=== PATIENT | male | born 1960 | race Caucasian/White ===

== ENCOUNTER 2019-03-15 07:01 | Outpatient (CLI) | payer BC ==
--- NOTE | 2019-03-15 07:55 | ULT ---
RIGHT UPPER QUADRANT ULTRASOUND: INDICATION: Abnormal liver function tests. FINDINGS: Gallbladder has a normal sonographic appearance. No evidence of gallstones. The common bile duct is of normal caliber. Pancreas is obscured. The liver appears within normal limits. There is evidence of mild hydronephro sis or fullness of the right renal collecting structures. IMPRESSION: Evidence of mild right hydronephrosis. Gallbladder ultrasound otherwise unremarkable. POS: OFF
--- NOTE | 2019-03-15 08:00 | ULT ---
LIMITED ABDOMINAL ULTRASOUND: INDICATION: Inguinal hernia. FINDINGS/IMPRESSION: Ultrasound of the right groin was performed. No evidence of inguinal hernia identified by ultrasound . POS: OFF
== END 2019-03-15 07:02 | disposition home or self-care (01) ==
LOC: ULT 07:01
PROVIDERS: ATTEND Physician Assistant
DX: K40.90 Unilateral inguinal hernia, without obstruction or gangrene, not specified as recurrent (principal); R74.0 Nonspecific elevation of levels of transaminase and lactic acid dehydrogenase [LDH]; N13.30 Unspecified hydronephrosis
CPT/HCPCS: 36415; 76705; 80061; 81001; 85025; G0103

== ENCOUNTER 2020-04-11 14:40 | Outpatient (CLI) | payer BC ==
--- NOTE | 2020-04-11 15:22 | ULT ---
US Renal Bilateral STANDARD History: Urinary frequency Comparison: None. Findings: Real-time grayscale and color evaluation of the kidneys and urinary bladder was performed. Right kidney measures 10.5 x 5.8 x 5.2 cm mild right hydronephrosis. No mass or abnormal calcificatio ns. Left kidney measures 10.8 x 5.8 x 5.5 cm without mass, hydronephrosis or abnormal calcifications. Urinary bladder is unremarkable. Prostate is enlarged. Impression: 1. Mild-early moderate right hydronephrosis. CT may be beneficial to evaluate for distal obstructing process. 2. Prostatomegaly. 3. Post void urinary bladder residual of 29 mL.
== END 2020-04-11 14:41 | disposition home or self-care (01) ==
LOC: BICULT 14:40
PROVIDERS: ATTEND Urology
DX: N13.39 Other hydronephrosis (principal); R35.0 Frequency of micturition; N40.0 Benign prostatic hyperplasia without lower urinary tract symptoms; Z87.19 Personal history of other diseases of the digestive system
CPT/HCPCS: 76770

== ENCOUNTER 2022-03-12 12:30 | Outpatient (CLI) | payer BC ==
[~2022-03-12 12:30] MED LIST: Iopamidol 370 76% 100 ML VIAL ONE
== END 2022-03-12 12:31 | disposition home or self-care (01) ==
LOC: CT 12:30
PROVIDERS: ATTEND Nurse Practitioner Family
DX: R10.31 Right lower quadrant pain (principal); R10.32 Left lower quadrant pain; K57.30 Diverticulosis of large intestine without perforation or abscess without bleeding; R53.83 Other fatigue; Z87.19 Personal history of other diseases of the digestive system
CPT/HCPCS: 74178; Q9967

== ENCOUNTER 2022-03-23 09:02 | Outpatient (CLI) | payer BC | END 2022-03-23 09:03 | disposition home or self-care (01) | LOC: BICRAD 09:02 | PROVIDERS: ATTEND Nurse Practitioner Family | DX: M25.512 Pain in left shoulder (principal); M19.012 Primary osteoarthritis, left shoulder ==

== ENCOUNTER 2024-10-26 09:47 | Outpatient (CLI) | payer MEDICARE ==
[2024-10-26 11:43] LABS: #Basophils 0.08 10x3/uL (0.0-0.2); %Basophils 1.2 % (0.0-1.0); %Lymphocytes 27.9 % (21.0-51.0); %Monocytes 7.7 % (0.0-10.0); %Neutrophils 57.8 % (42.0-75.0); Hematocrit 47.2 % (42.0-52.0); Hemoglobin 15.4 g/dL (14.0-18.0); Mean Corpuscular HGB CONC 32.6 g/dL (32.0-36.0); Mean Corpuscular Hemoglobin 27.7 pg (27.0-31.0); Platelet Count 154 10x3/uL (130-400); RBC Distribution Width 14.2 % (11.5-14.5); Red Blood Cell (RBC) Count 5.55 mill/uL (4.70-6.10)
[2024-10-26 12:02] LABS: Anion Gap 14 mmol/L (10-20); BUN (Urea Nitrogen) 16 mg/dL (8.4-25.7); Calc. Creatinine Clearance 0 mL/min (70-130); Calcium 9.5 mg/dL (7.8-10.44); Carbon Dioxide 25 mmol/L (23-31); Chloride 108 mmol/L (98-107); Estimated GFR 77; Glucose 69 mg/dL (80-115); Potassium 4.9 mmol/L (3.5-5.1); Sodium 142 mmol/L (136-145)
== END 2024-10-26 09:48 | disposition home or self-care (01) ==
LOC: LABBT 09:47
PROVIDERS: ATTEND Surgery
DX: Z01.818 Encounter for other preprocedural examination (principal); K57.32 Diverticulitis of large intestine without perforation or abscess without bleeding
CPT/HCPCS: 80048; 85025; 93005; 93010

== ENCOUNTER 2024-10-26 10:00 | Inpatient (IN) | payer MEDICARE ==
[2024-10-26 10:10] VITALS: BMI 26.9
[2024-11-03] MEDS ORDERED: Bupivacaine 0.25% HCL 30 ML VIAL ONE (10:31)
[2024-11-03] MEDS ORDERED: EPINEPHrine 1 MG/ML VIAL ONE (10:31)
[2024-11-03] MEDS ORDERED: Indocyanine Green 25 MG/10 ML VIAL ONE (10:31)
[2024-11-03] MEDS ORDERED: Acetaminophen 325 MG TAB ONE (10:42)
[2024-11-03] MEDS ORDERED: Heparin 5,000 UNITS/ML VIAL ONE (10:42)
[2024-11-03] MEDS ORDERED: metroNIDAZOLE 500 MG (100 mL) BAG ONE (10:43)
[2024-11-03] MEDS ORDERED: Ketorolac Tromethamine 30 MG (1 mL) VIAL ONE (10:43)
[2024-11-03] MEDS ORDERED: CEFAZOLIN 2 GM VIAL ONE (11:59)
[2024-11-03] MEDS ORDERED: fentaNYL PF 100 MCG/2 ML SYRINGE ONE (12:02)
[2024-11-03] MEDS ORDERED: Rocuronium Bromide 10 MG/ML (10ML VIAL) ONE (12:02)
[2024-11-03] MEDS ORDERED: Ondansetron PF 4 MG/2 ML Vial ONE (12:02)
[2024-11-03] MEDS ORDERED: Midazolam HCl 2 mg/2 ml Vial ONE (12:02)
[2024-11-03] MEDS ORDERED: Lidocaine 2% PF 5 ML VIAL ONE (12:02)
[2024-11-03] MEDS ORDERED: PROPOFOL 200 MG/20 ML VIAL ONE (12:20)
[2024-11-03] MEDS ORDERED: Dexamethasone 20 MG/5 ML VIAL ONE (12:20)
[2024-11-03] MEDS ORDERED: HYDROmorphone 2 MG/ML VIAL ONE (12:26)
[2024-11-03] MEDS ORDERED: SUGAMMADEX SODIUM 200 MG/2 ML VIAL ONE (13:19)
[2024-11-03] MEDS ORDERED: hydrALAZINE 20 MG/ML VIAL SLOW IVP PRN (13:45)
[2024-11-03] MEDS ORDERED: Promethazine HCl 25 MG/ML VIAL IM PRN (13:45)
[2024-11-03] MEDS ORDERED: Ipratropium/Albuterol 3 ML NEB NEB PRN (13:45)
[2024-11-03] MEDS: Acetaminophen 325 MG TAB PO SCH (15:20)
[2024-11-03] MEDS: Ketorolac Tromethamine 30 MG (1 mL) VIAL IVP SCH (17:14)
[2024-11-03] MEDS: Ondansetron PF 4 MG/2 ML Vial IVP PRN (21:22)
[2024-11-04] MEDS: traMADol HCl 50 MG TAB PO PRN (03:09)
[2024-11-04 05:23] LABS: #Basophils Less than 0.03 10x3/uL (0.0-0.2); #Eosinophils Less than 0.03 10x3/uL (0.0-0.7); %Basophils 0.1 % (0.0-1.0); %Lymphocytes 6.3 % (21.0-51.0); %Monocytes 7.2 % (0.0-10.0); Hematocrit 34.9 % (42.0-52.0); Hemoglobin 11.6 g/dL (14.0-18.0); Mean Corpuscular HGB CONC 33.2 g/dL (32.0-36.0); Mean Corpuscular Hemoglobin 28.2 pg (27.0-31.0); Mean Corpuscular Volume 84.9 fL (78.0-98.0); Mean Platelet Volume 12.7 fL (7.4-10.4); Platelet Count 169 10x3/uL (130-400); Red Blood Cell (RBC) Count 4.11 mill/uL (4.70-6.10)
[2024-11-04 05:47] LABS: Anion Gap 11 mmol/L (10-20); BUN (Urea Nitrogen) 19 mg/dL (8.4-25.7); Calc. Creatinine Clearance 78 mL/min (70-130); Calcium 7.9 mg/dL (7.8-10.44); Carbon Dioxide 22 mmol/L (23-31); Chloride 108 mmol/L (98-107); Estimated GFR 72; Glucose 128 mg/dL (80-115); Potassium 4.1 mmol/L (3.5-5.1); Sodium 137 mmol/L (136-145)
[2024-11-04] MEDS: Enoxaparin 40 MG (0.4 mL) SYRINGE SC SCH (08:16)
[2024-11-04] MEDS: Tamsulosin HCl 0.4 MG CAP PO SCH (08:16)
[2024-11-04] MEDS: Sodium Chloride 0.9% 1,000 ML IV SCH (12:59)
[2024-11-05] MEDS: Milk Of Magnesia 30 ML UDCUP PO PRN (14:46)
[2024-11-05 16:49] VITALS: BP 119/74; TEMP 97.9
[2024-11-05] MEDS: traMADol HCl 50 MG TAB PO PRN (17:25)
== END 2024-11-05 17:50 | disposition home or self-care (01) | DRG 331 ==
LOC: SURG A 11-03 09:56
PROVIDERS: ADMIT Surgery; ATTEND Surgery
PROC: 0DBN4ZZ Excision of Sigmoid Colon, Percutaneous Endoscopic Approach (ICD-10-PCS; principal; 2024-11-03)
PROC: 8E0W4CZ Robotic Assisted Procedure of Trunk Region, Percutaneous Endoscopic Approach (ICD-10-PCS; 2024-11-03)
DX: K57.32 Diverticulitis of large intestine without perforation or abscess without bleeding (principal)
CPT/HCPCS: 36415; 36416; 80048; 85025; 88307; C1776; J0171; J0665; J1100; J1171; J1644; J1650; J1885; J2250; J2405; J2704; J7030; S2900